=== PATIENT | female | born 1990 | race Caucasian/White ===

== ENCOUNTER 2016-10-30 09:52 | Emergency (ER) | payer MEDICAID ==
[~2016-10-30] VITALS: Ht 170.2 cm; Wt 119.6 kg
[~2016-10-30 09:52] MED LIST: LIOT5TAB3 PO; MEDR150V INJ
[2016-10-30 10:45] LABS: BLOOD UREA NITROGEN 12 mg/dL (7-18)
[2016-10-30 10:52] LABS: IS PT STATUS REG ER OR PRE ER? YES
[2016-10-30 11:43] VITALS: BP 110/60
== END 2016-10-30 11:45 | disposition home or self-care (01) ==
LOC: ED 10:33
DX: R07.89 Other chest pain (principal); E07.89 Other specified disorders of thyroid
CPT/HCPCS: 36415; 71010; 80048; 82040; 84484; 85025; 85379; 93005; 99285

== ENCOUNTER 2017-05-28 18:07 | Emergency (ER) | payer MEDICAID ==
[~2017-05-28] VITALS: Ht 170.2 cm; Wt 121.7 kg
[2017-05-28 18:39] VITALS: BP 137/82
[2017-05-28] MEDS ORDERED: [UNRECOGNIZED DRUG - OTHER] (19:51)
== END 2017-05-28 20:25 | disposition home or self-care (01) ==
LOC: ED 20:10
DX: K08.89 Other specified disorders of teeth and supporting structures (principal)
CPT/HCPCS: 99283